=== PATIENT | female | born 1935 | race Caucasian/White ===

== ENCOUNTER 2020-08-28 05:53 | Inpatient (IN) ==
[2020-08-28 06:33] LABS: Basophils % 0.4 %; Eosinophils # 0.1 K/mcL (0.0-0.6); Eosinophils % 0.9 %; Hemoglobin 10.5 g/dL (11.5-15.4); Immature Granulocytes % 0.4 % (0-4); Immature Platelets 1.7 % (1.1-6.1); Lymphocytes # 0.8 K/mcL (0.6-4.6); Mean Corpuscular HGB Conc 31.8 g/dL (31.6-35.5); Mean Corpuscular Hemoglobin 26.9 pg (28.0-33.3); Mean Corpuscular Volume 84.4 fL (83.0-100.0); Mean Platelet Volume 9.8 fL (9.4-12.4); Monocytes # 0.5 K/mcL (0.0-1.3); Monocytes % 4.4 %; Neutrophils # 9.1 K/mcL (1.6-8.9); Platelet Count 285 K/mcL (140-400); Red Blood Count 3.91 M/mcL (3.82-4.97); Red Cell Distribution Width 14.9 % (11.5-14.5); Segmented Neutrophils % 85.9 %; White Blood Count 10.6 K/mcL (4.3-11.1)
[2020-08-28 06:51] LABS: BUN/Creatinine Ratio 17 (6-26); Blood Urea Nitrogen 31 mg/dL (8-23); Calcium 9.4 mg/dL (8.6-10.3); Carbon Dioxide 24 mEq/L (23-29); Chloride 101 mEq/L (98-107); Glucose 333 mg/dL (70-105); Osmolality,Calculated 298 (280-300); Potassium 4.8 mEq/L (3.5-5.1); Sodium 134 mEq/L (136-145); eGFR For African Americans 31 (> 60); eGFR For Non-African Americans 26 (> 60)
[2020-08-28 06:52] LABS: Troponin I < 0.03 ng/mL (< 0.04)
[2020-08-28] MEDS ORDERED: Furosemide 20 MG/2 ML VIAL IVP ONE (07:35)
[2020-08-28] MEDS ORDERED: Naloxone 0.4 MG/ML INJ IVP PRN (08:57)
[2020-08-28] MEDS ORDERED: Ondansetron 4 MG/2 ML VIAL IVP PRN (08:57)
[2020-08-28] MEDS ORDERED: Melatonin 3 MG TABLET PO PRN (08:57)
[2020-08-28] MEDS ORDERED: MOM Conc 10 ML UD.LIQ PO PRN (08:57)
[2020-08-28] MEDS ORDERED: Mag Hydrox/Al Hydrox/Simeth 30 ML UDC PO PRN (08:57)
[2020-08-28] MEDS ORDERED: Acetaminophen 325 MG TABLET PO PRN (08:57)
[2020-08-28] MEDS ORDERED: Aspirin Enteric Coated 81 MG Tablet PO SCH (12:30)
[2020-08-28] MEDS ORDERED: Perflutren Lipid Microsphere 1.3 ML in 0.9 % Sodium Chloride 8.7 ML IVP PRN (14:59)
[2020-08-28] MEDS: Valsartan 160 MG TABLET PO SCH (15:08)
[2020-08-28] MEDS ORDERED: D5% in Water 1,000 ML IVC PRN (18:50)
[2020-08-28] MEDS ORDERED: *HR* Dextrose 50 % in Water (Vial) 50 ML VIAL IVP PRN (18:50)
[2020-08-28] MEDS ORDERED: Dextrose Gel 15 GM/37.5 ML TUBE PO PRN ×2 (18:50)
[2020-08-28] MEDS: Insulin LISPRO 300 UNITS/3 ML VIAL SUBQ SCH (21:55)
[2020-08-29 07:13] LABS: Hematocrit 31.2 % (35.3-44.9); Hemoglobin 9.7 g/dL (11.5-15.4); Mean Corpuscular HGB Conc 31.1 g/dL (31.6-35.5); Mean Corpuscular Hemoglobin 26.1 pg (28.0-33.3); Mean Corpuscular Volume 83.9 fL (83.0-100.0); Mean Platelet Volume 9.7 fL (9.4-12.4); Platelet Count 248 K/mcL (140-400); Red Blood Count 3.72 M/mcL (3.82-4.97); Red Cell Distribution Width 14.6 % (11.5-14.5); White Blood Count 7.5 K/mcL (4.3-11.1)
[2020-08-29 07:33] LABS: BUN/Creatinine Ratio 19 (6-26); Blood Urea Nitrogen 32 mg/dL (8-23); Calcium 9.4 mg/dL (8.6-10.3); Carbon Dioxide 27 mEq/L (23-29); Chloride 102 mEq/L (98-107); Chol/HDL Ratio 5.1 (0-4.9); Cholesterol 123 mg/dL (< 200); Glucose 183 mg/dL (70-105); HDL Cholesterol 24 mg/dL (40-59); Osmolality,Calculated 296 (280-300); Potassium 4.2 mEq/L (3.5-5.1); Sodium 137 mEq/L (136-145); Triglycerides 435 mg/dL (< 150); eGFR For African Americans 35 (> 60); eGFR For Non-African Americans 29 (> 60)
[2020-08-29 08:18] LABS: Estimated Average Glucose 209 mg/dl; Hemoglobin A1C 8.9 %
[2020-08-29] MEDS ORDERED: Furosemide 20 MG/2 ML VIAL IVP SCH (09:00)
[2020-08-29] MEDS ORDERED: Famotidine 20 MG TABLET PO SCH (09:00)
[2020-08-29] MEDS ORDERED: VALSARTAN 320 MG PO SCH (09:00)
[2020-08-29] MEDS: Aspirin Enteric Coated 81 MG Tablet PO SCH (09:03)
[2020-08-29] MEDS: Valsartan 160 MG TABLET PO SCH (09:04)
[2020-08-29] MEDS: Fenofibrate 54 MG TABLET PO SCH (09:04)
[2020-08-29] MEDS: Insulin LISPRO 300 UNITS/3 ML VIAL SUBQ SCH ×4 (09:07→19:52)
[2020-08-30 02:36] LABS: Basophils # 0.1 K/mcL (0.0-0.2); Basophils % 0.8 %; Eosinophils # 0.2 K/mcL (0.0-0.6); Eosinophils % 3.6 %; Hematocrit 29.7 % (35.3-44.9); Hemoglobin 9.3 g/dL (11.5-15.4); Immature Granulocytes % 0.3 % (0-4); Lymphocytes # 1.2 K/mcL (0.6-4.6); Lymphocytes % 17.9 %; Mean Corpuscular HGB Conc 31.3 g/dL (31.6-35.5); Mean Corpuscular Hemoglobin 26.3 pg (28.0-33.3); Mean Corpuscular Volume 83.9 fL (83.0-100.0); Mean Platelet Volume 9.6 fL (9.4-12.4); Monocytes # 0.6 K/mcL (0.0-1.3); Monocytes % 8.9 %; Neutrophils # 4.4 K/mcL (1.6-8.9); Platelet Count 235 K/mcL (140-400); Red Blood Count 3.54 M/mcL (3.82-4.97); Red Cell Distribution Width 14.4 % (11.5-14.5); Segmented Neutrophils % 68.5 %; White Blood Count 6.4 K/mcL (4.3-11.1)
[2020-08-30 02:55] LABS: Albumin 3.9 g/dL (3.5-5.7); Albumin/Globulin Ratio 1.8 (1.1-2.2); Bilirubin,Indirect 0.3 mg/dL (0.0-1.0); Bilirubin,Total 0.3 mg/dL (0.3-1.0); Calcium 9.2 mg/dL (8.6-10.3); Globulin 2.2 g/dL (2.4-3.5); Magnesium 2.1 mg/dL (1.6-2.6); Potassium 4.1 mEq/L (3.5-5.1); Total Protein 6.1 g/dL (6.4-8.9)
[2020-08-30 03:06] LABS: Thyroid Stimulating Hormone 2.091 mcIU/mL (0.340-5.600)
[2020-08-30 03:16] LABS: Folate 12.9 ng/mL (3.0-16.0)
[2020-08-30] MEDS: *HR* Heparin 5,000 UNIT/ML VIAL SQ SCH ×2 (04:36→17:00)
[2020-08-30] MEDS: Fenofibrate 54 MG TABLET PO SCH (07:56)
[2020-08-30] MEDS: Valsartan 160 MG TABLET PO SCH (07:57)
[2020-08-30] MEDS: Famotidine 20 MG TABLET PO SCH (07:57)
[2020-08-30] MEDS: Aspirin Enteric Coated 81 MG Tablet PO SCH (07:57)
[2020-08-30] MEDS: Insulin LISPRO 300 UNITS/3 ML VIAL SUBQ SCH ×3 (07:58→17:01)
[2020-08-30] MEDS ORDERED: Furosemide 20 MG/2 ML VIAL IVP SCH (09:00)
[2020-08-30] MEDS: amLODIPine 5 MG TABLET PO SCH (15:37)
[2020-08-30] MEDS ORDERED: Insulin DETEMIR 100 UNIT/ML X5UNITS SUBQ SCH (21:00)
[2020-08-31 03:31] LABS: Basophils % 0.5 %; Eosinophils # 0.2 K/mcL (0.0-0.6); Eosinophils % 3.2 %; Hematocrit 30.3 % (35.3-44.9); Immature Granulocytes % 0.5 % (0-4); Lymphocytes # 1.1 K/mcL (0.6-4.6); Lymphocytes % 18.1 %; Mean Corpuscular Hemoglobin 27.5 pg (28.0-33.3); Mean Corpuscular Volume 83.2 fL (83.0-100.0); Mean Platelet Volume 9.9 fL (9.4-12.4); Monocytes # 0.5 K/mcL (0.0-1.3); Monocytes % 8.5 %; Neutrophils # 4.3 K/mcL (1.6-8.9); Platelet Count 262 K/mcL (140-400); Red Blood Count 3.64 M/mcL (3.82-4.97); Red Cell Distribution Width 14.5 % (11.5-14.5); Segmented Neutrophils % 69.2 %; White Blood Count 6.3 K/mcL (4.3-11.1)
[2020-08-31 03:49] LABS: Magnesium 2.1 mg/dL (1.6-2.6); Potassium 4.4 mEq/L (3.5-5.1)
[2020-08-31] MEDS: *HR* Heparin 5,000 UNIT/ML VIAL SQ SCH (06:12)
[2020-08-31 07:44] VITALS: BP 147/87
[2020-08-31] MEDS: Fenofibrate 54 MG TABLET PO SCH (07:56)
[2020-08-31] MEDS: Insulin LISPRO 300 UNITS/3 ML VIAL SUBQ SCH (07:56)
[2020-08-31] MEDS: Famotidine 20 MG TABLET PO SCH (07:57)
[2020-08-31] MEDS: Aspirin Enteric Coated 81 MG Tablet PO SCH (07:57)
[2020-08-31] MEDS: amLODIPine 5 MG TABLET PO SCH (07:57)
== END 2020-08-31 10:43 | disposition home or self-care (01) | DRG 291 ==
LOC: EMEROOARM 05:53 → 3ANU 05:53 → SUATTDRO 09:11 → 3ANU 10:44
PROVIDERS: ADMIT Internal Medicine; ATTEND Pharmacist

== ENCOUNTER 2020-11-17 08:17 | Inpatient (IN) ==
[2020-11-17] MEDS ORDERED: Ipratropium/Albuterol Neb 3 ML IH ONE (08:43)
[2020-11-17 09:23] LABS: Basophils # 0.1 K/mcL (0.0-0.2); Basophils % 0.5 %; Eosinophils # 0.2 K/mcL (0.0-0.6); Eosinophils % 1.9 %; Hematocrit 33.8 % (35.3-44.9); Hemoglobin 10.4 g/dL (11.5-15.4); Immature Granulocytes % 0.5 % (0-4); Lymphocytes # 0.8 K/mcL (0.6-4.6); Lymphocytes % 7.9 %; Mean Corpuscular HGB Conc 30.8 g/dL (31.6-35.5); Mean Corpuscular Hemoglobin 25.8 pg (28.0-33.3); Mean Corpuscular Volume 83.9 fL (83.0-100.0); Mean Platelet Volume 9.1 fL (9.4-12.4); Monocytes # 0.6 K/mcL (0.0-1.3); Monocytes % 6.1 %; Platelet Count 308 K/mcL (140-400); Red Blood Count 4.03 M/mcL (3.82-4.97); Red Cell Distribution Width 14.9 % (11.5-14.5); Segmented Neutrophils % 83.1 %; White Blood Count 9.7 K/mcL (4.3-11.1)
[2020-11-17 09:44] LABS: BUN/Creatinine Ratio 17 (6-26); Blood Urea Nitrogen 45 mg/dL (8-23); Carbon Dioxide 26 mEq/L (23-29); Chloride 100 mEq/L (98-107); Glucose 127 mg/dL (70-105); Osmolality,Calculated 293 (280-300); Potassium 4.9 mEq/L (3.5-5.1); Sodium 135 mEq/L (136-145); Troponin I < 0.03 ng/mL (< 0.04); eGFR For African Americans 21 (> 60); eGFR For Non-African Americans 17 (> 60)
[2020-11-17] MEDS ORDERED: Furosemide 40 MG/4 ML VIAL IVP ONE (12:11)
[2020-11-17] MEDS ORDERED: methylPREDNISolone 125 MG/2 ML VIAL IVP ONE (12:19)
[2020-11-17] MEDS ORDERED: Acetaminophen 325 MG TABLET PO PRN (13:10)
[2020-11-17] MEDS ORDERED: Mag Hydrox/Al Hydrox/Simeth 30 ML UDC PO PRN (13:10)
[2020-11-17] MEDS ORDERED: Naloxone 0.4 MG/ML INJ IVP PRN (13:10)
[2020-11-17] MEDS ORDERED: Ondansetron ODT 4 MG TAB.RAPDIS SL PRN (13:10)
[2020-11-17] MEDS ORDERED: Albuterol 2.5 MG/3 ML NEBULIZER IH PRN (13:14)
[2020-11-17] MEDS ORDERED: *HR* Dextrose 50 % in Water (Vial) 50 ML VIAL IVP PRN (15:59)
[2020-11-17] MEDS ORDERED: D5% in Water 1,000 ML IVC PRN (15:59)
[2020-11-17] MEDS ORDERED: Dextrose Gel 15 GM/37.5 ML TUBE PO PRN ×2 (15:59)
[2020-11-17] MEDS: Ipratropium/Albuterol Neb 3 ML IH SCH ×3 (16:02→23:07)
[2020-11-17] MEDS ORDERED: Azithromycin 250 MG TABLET PO ONE (16:22)
[2020-11-17 16:31] LABS: Adenovirus Not Detected (Not Detect); Bordetella Pertussis Not Detected (Not Detect); Chlamydophila pneumoniae Not Detected (Not Detect); Coronavirus 229E Not Detected (Not Detect); Coronavirus HKU1 Not Detected (Not Detect); Coronavirus NL63 Not Detected (Not Detect); Coronavirus OC43 Not Detected (Not Detect); Human Metapneumovirus Not Detected (Not Detect); Human Rhinovirus/Enterovirus Not Detected (Not Detect); Influenza A Subtype 2009 H1 Not Detected (Not Detect); Influenza B Not Detected (Not Detect); Mycoplasma pneumoniae Not Detected (Not Detect); Parainfluenza Virus 1 Not Detected (Not Detect); Parainfluenza Virus 2 Not Detected (Not Detect); Parainfluenza Virus 3 Not Detected (Not Detect); Parainfluenza Virus 4 Not Detected (Not Detect); Respiratory Syncytial Virus Not Detected (Not Detect); SARS-CoV-2 Not Detected (Not Detect)
[2020-11-17] MEDS: Insulin LISPRO 300 UNITS/3 ML VIAL SUBQ SCH ×2 (17:02→20:43)
[2020-11-17] MEDS: *HR* Heparin 5,000 UNIT/ML VIAL SQ SCH (17:20)
[2020-11-17] MEDS: Budesonide/Formoterol 160/4.5 1 PUFF INH IH SCH (19:43)
[2020-11-18] MEDS: Ipratropium/Albuterol Neb 3 ML IH SCH ×6 (03:05→23:50)
[2020-11-18] MEDS: *HR* Heparin 5,000 UNIT/ML VIAL SQ SCH ×2 (03:59→17:29)
[2020-11-18 06:27] LABS: Hematocrit 32.4 % (35.3-44.9); Hemoglobin 10.1 g/dL (11.5-15.4); Mean Corpuscular HGB Conc 31.2 g/dL (31.6-35.5); Mean Corpuscular Hemoglobin 25.7 pg (28.0-33.3); Mean Corpuscular Volume 82.4 fL (83.0-100.0); Mean Platelet Volume 9.5 fL (9.4-12.4); Platelet Count 304 K/mcL (140-400); Red Blood Count 3.93 M/mcL (3.82-4.97); Red Cell Distribution Width 14.6 % (11.5-14.5); White Blood Count 6.4 K/mcL (4.3-11.1)
[2020-11-18] MEDS: Budesonide/Formoterol 160/4.5 1 PUFF INH IH SCH ×2 (07:29→19:38)
[2020-11-18] MEDS ORDERED: Famotidine 20 MG TABLET PO SCH (09:00)
[2020-11-18] MEDS: Valsartan 160 MG TABLET PO SCH (09:07)
[2020-11-18] MEDS: Furosemide 40 MG/4 ML VIAL IVP SCH (09:08)
[2020-11-18] MEDS: predniSONE 20 MG TABLET PO SCH (09:08)
[2020-11-18] MEDS: Aspirin Enteric Coated 81 MG Tablet PO SCH (09:08)
[2020-11-18] MEDS: Azithromycin 250 MG TABLET PO SCH (09:08)
[2020-11-18] MEDS: amLODIPine 5 MG TABLET PO SCH (09:08)
[2020-11-18] MEDS: Insulin LISPRO 300 UNITS/3 ML VIAL SUBQ SCH ×4 (09:09→20:16)
[2020-11-19] MEDS: Ipratropium/Albuterol Neb 3 ML IH SCH ×6 (04:16→23:38)
[2020-11-19] MEDS: *HR* Heparin 5,000 UNIT/ML VIAL SQ SCH ×2 (04:58→17:31)
[2020-11-19] MEDS: Budesonide/Formoterol 160/4.5 1 PUFF INH IH SCH ×2 (07:35→19:51)
[2020-11-19] MEDS: Furosemide 40 MG/4 ML VIAL IVP SCH (07:54)
[2020-11-19] MEDS: Insulin LISPRO 300 UNITS/3 ML VIAL SUBQ SCH ×4 (07:54→21:30)
[2020-11-19] MEDS: Famotidine 20 MG TABLET PO SCH (08:01)
[2020-11-19] MEDS: Azithromycin 250 MG TABLET PO SCH (08:01)
[2020-11-19] MEDS: Valsartan 160 MG TABLET PO SCH (08:02)
[2020-11-19] MEDS: amLODIPine 5 MG TABLET PO SCH (08:02)
[2020-11-19] MEDS: Aspirin Enteric Coated 81 MG Tablet PO SCH (08:02)
[2020-11-19] MEDS: predniSONE 20 MG TABLET PO SCH (08:03)
[2020-11-19 09:45] LABS: Calcium 9.3 mg/dL (8.6-10.3); Magnesium 2.7 mg/dL (1.6-2.6); Potassium 4.8 mEq/L (3.5-5.1)
[2020-11-19] MEDS: Insulin DETEMIR 100 UNIT/ML X5UNITS SUBQ SCH (15:49)
[2020-11-20 02:07] LABS: Basophils % 0.1 %; Hematocrit 30.6 % (35.3-44.9); Hemoglobin 9.4 g/dL (11.5-15.4); Immature Granulocytes % 0.5 % (0-4); Lymphocytes # 0.6 K/mcL (0.6-4.6); Lymphocytes % 6.9 %; Mean Corpuscular HGB Conc 30.7 g/dL (31.6-35.5); Mean Corpuscular Hemoglobin 25.8 pg (28.0-33.3); Mean Corpuscular Volume 83.8 fL (83.0-100.0); Mean Platelet Volume 9.6 fL (9.4-12.4); Monocytes # 0.5 K/mcL (0.0-1.3); Monocytes % 5.4 %; Neutrophils # 8.1 K/mcL (1.6-8.9); Platelet Count 293 K/mcL (140-400); Red Blood Count 3.65 M/mcL (3.82-4.97); Red Cell Distribution Width 14.6 % (11.5-14.5); Segmented Neutrophils % 87.1 %; White Blood Count 9.3 K/mcL (4.3-11.1)
[2020-11-20 02:25] LABS: Albumin 3.8 g/dL (3.5-5.7); Albumin/Globulin Ratio 1.6 (1.1-2.2); Bilirubin,Total 0.3 mg/dL (0.3-1.0); Calcium 8.5 mg/dL (8.6-10.3); Globulin 2.4 g/dL (2.4-3.5); Phosphorous 5.1 mg/dL (2.7-4.5); Potassium 5.1 mEq/L (3.5-5.1); Total Protein 6.2 g/dL (6.4-8.9)
[2020-11-20] MEDS: Ipratropium/Albuterol Neb 3 ML IH SCH ×6 (03:42→23:52)
[2020-11-20] MEDS: *HR* Heparin 5,000 UNIT/ML VIAL SQ SCH ×2 (05:56→16:59)
[2020-11-20] MEDS ORDERED: Albumin 25% 25gram/100mL 25 GM/100 ML IV.SOLN IVPB ONE (06:00)
[2020-11-20] MEDS: Budesonide/Formoterol 160/4.5 1 PUFF INH IH SCH ×2 (07:29→20:12)
[2020-11-20] MEDS: Insulin LISPRO 300 UNITS/3 ML VIAL SUBQ SCH ×4 (07:40→21:04)
[2020-11-20] MEDS: Insulin DETEMIR 100 UNIT/ML X5UNITS SUBQ SCH (07:40)
[2020-11-20] MEDS: predniSONE 20 MG TABLET PO SCH (07:41)
[2020-11-20] MEDS: Furosemide 40 MG/4 ML VIAL IVP SCH (07:41)
[2020-11-20] MEDS: Aspirin Enteric Coated 81 MG Tablet PO SCH (07:41)
[2020-11-20] MEDS: Famotidine 20 MG TABLET PO SCH (07:41)
[2020-11-20] MEDS: amLODIPine 5 MG TABLET PO SCH (07:41)
[2020-11-20] MEDS: Valsartan 160 MG TABLET PO SCH (07:42)
[2020-11-20] MEDS: Azithromycin 250 MG TABLET PO SCH (07:42)
[2020-11-21] MEDS: Ipratropium/Albuterol Neb 3 ML IH SCH ×6 (03:27→23:44)
[2020-11-21 05:03] LABS: Eosinophils % 0.2 %; Hemoglobin 10.1 g/dL (11.5-15.4); Immature Granulocytes % 0.3 % (0-4); Lymphocytes # 0.7 K/mcL (0.6-4.6); Lymphocytes % 8.3 %; Mean Corpuscular HGB Conc 31.6 g/dL (31.6-35.5); Mean Corpuscular Hemoglobin 26.7 pg (28.0-33.3); Mean Corpuscular Volume 84.7 fL (83.0-100.0); Mean Platelet Volume 9.5 fL (9.4-12.4); Monocytes # 0.7 K/mcL (0.0-1.3); Monocytes % 8.3 %; Neutrophils # 7.3 K/mcL (1.6-8.9); Platelet Count 277 K/mcL (140-400); Red Blood Count 3.78 M/mcL (3.82-4.97); Red Cell Distribution Width 14.6 % (11.5-14.5); Segmented Neutrophils % 82.9 %; White Blood Count 8.8 K/mcL (4.3-11.1)
[2020-11-21 05:26] LABS: Calcium 9.4 mg/dL (8.6-10.3); Potassium 4.9 mEq/L (3.5-5.1)
[2020-11-21] MEDS: *HR* Heparin 5,000 UNIT/ML VIAL SQ SCH ×2 (05:28→17:41)
[2020-11-21] MEDS: Insulin LISPRO 300 UNITS/3 ML VIAL SUBQ SCH ×4 (07:09→20:50)
[2020-11-21] MEDS: Azithromycin 250 MG TABLET PO SCH (07:33)
[2020-11-21] MEDS: Insulin DETEMIR 100 UNIT/ML X5UNITS SUBQ SCH (07:33)
[2020-11-21] MEDS: Aspirin Enteric Coated 81 MG Tablet PO SCH (07:33)
[2020-11-21] MEDS: Furosemide 40 MG/4 ML VIAL IVP SCH (07:33)
[2020-11-21] MEDS: Valsartan 160 MG TABLET PO SCH (07:34)
[2020-11-21] MEDS: predniSONE 20 MG TABLET PO SCH (07:34)
[2020-11-21] MEDS: amLODIPine 5 MG TABLET PO SCH (07:34)
[2020-11-21] MEDS: Famotidine 20 MG TABLET PO SCH (07:34)
[2020-11-21] MEDS: Budesonide/Formoterol 160/4.5 1 PUFF INH IH SCH ×2 (07:43→19:40)
[2020-11-22] MEDS: Ipratropium/Albuterol Neb 3 ML IH SCH ×5 (03:38→19:36)
[2020-11-22] MEDS: *HR* Heparin 5,000 UNIT/ML VIAL SQ SCH ×2 (05:26→16:59)
[2020-11-22] MEDS: Insulin LISPRO 300 UNITS/3 ML VIAL SUBQ SCH ×4 (07:08→21:23)
[2020-11-22] MEDS: Budesonide/Formoterol 160/4.5 1 PUFF INH IH SCH ×2 (07:35→19:36)
[2020-11-22] MEDS: Insulin DETEMIR 100 UNIT/ML X5UNITS SUBQ SCH (08:11)
[2020-11-22] MEDS: predniSONE 20 MG TABLET PO SCH (08:11)
[2020-11-22] MEDS: Valsartan 160 MG TABLET PO SCH (08:11)
[2020-11-22] MEDS: Aspirin Enteric Coated 81 MG Tablet PO SCH (08:11)
[2020-11-22] MEDS: amLODIPine 5 MG TABLET PO SCH (08:12)
[2020-11-22] MEDS: Famotidine 20 MG TABLET PO SCH (08:12)
[2020-11-22] MEDS ORDERED: Furosemide 40 MG TABLET PO SCH (09:00)
[2020-11-22 12:32] LABS: Hematocrit 34.2 % (35.3-44.9); Hemoglobin 10.8 g/dL (11.5-15.4); Mean Corpuscular HGB Conc 31.6 g/dL (31.6-35.5); Mean Corpuscular Hemoglobin 26.5 pg (28.0-33.3); Mean Platelet Volume 9.3 fL (9.4-12.4); Platelet Count 300 K/mcL (140-400); Red Blood Count 4.07 M/mcL (3.82-4.97); Red Cell Distribution Width 14.6 % (11.5-14.5); White Blood Count 10.9 K/mcL (4.3-11.1)
[2020-11-22 13:01] LABS: Calcium 9.4 mg/dL (8.6-10.3); Potassium 5.2 mEq/L (3.5-5.1)
[2020-11-22] MEDS: Melatonin 3 MG TABLET PO PRN (21:22)
[2020-11-23] MEDS: Ipratropium/Albuterol Neb 3 ML IH SCH ×6 (00:23→21:19)
[2020-11-23 01:27] LABS: Hematocrit 31.8 % (35.3-44.9); Hemoglobin 10.1 g/dL (11.5-15.4); Mean Corpuscular HGB Conc 31.8 g/dL (31.6-35.5); Mean Corpuscular Hemoglobin 26.6 pg (28.0-33.3); Mean Corpuscular Volume 83.9 fL (83.0-100.0); Mean Platelet Volume 9.3 fL (9.4-12.4); Platelet Count 254 K/mcL (140-400); Red Blood Count 3.79 M/mcL (3.82-4.97); Red Cell Distribution Width 14.5 % (11.5-14.5); White Blood Count 8.3 K/mcL (4.3-11.1)
[2020-11-23 01:52] LABS: Calcium 9.2 mg/dL (8.6-10.3); Potassium 4.9 mEq/L (3.5-5.1)
[2020-11-23] MEDS: *HR* Heparin 5,000 UNIT/ML VIAL SQ SCH ×2 (05:54→16:54)
[2020-11-23] MEDS: Budesonide/Formoterol 160/4.5 1 PUFF INH IH SCH ×2 (07:12→21:19)
[2020-11-23] MEDS: Insulin LISPRO 300 UNITS/3 ML VIAL SUBQ SCH ×4 (07:18→21:42)
[2020-11-23] MEDS: amLODIPine 5 MG TABLET PO SCH (07:44)
[2020-11-23] MEDS: Aspirin Enteric Coated 81 MG Tablet PO SCH (07:44)
[2020-11-23] MEDS: Insulin DETEMIR 100 UNIT/ML X5UNITS SUBQ SCH (07:44)
[2020-11-23] MEDS: predniSONE 20 MG TABLET PO SCH (07:45)
[2020-11-23] MEDS: Famotidine 20 MG TABLET PO SCH (07:45)
[2020-11-23] MEDS: Melatonin 3 MG TABLET PO PRN (21:45)
[2020-11-24] MEDS: Ipratropium/Albuterol Neb 3 ML IH SCH ×4 (00:25→11:00)
[2020-11-24 04:54] LABS: Basophils % 0.1 %; Eosinophils # 0.2 K/mcL (0.0-0.6); Hematocrit 30.4 % (35.3-44.9); Hemoglobin 9.9 g/dL (11.5-15.4); Immature Granulocytes % 0.3 % (0-4); Lymphocytes # 0.9 K/mcL (0.6-4.6); Lymphocytes % 9.7 %; Mean Corpuscular HGB Conc 32.6 g/dL (31.6-35.5); Mean Corpuscular Hemoglobin 26.5 pg (28.0-33.3); Mean Corpuscular Volume 81.5 fL (83.0-100.0); Mean Platelet Volume 9.2 fL (9.4-12.4); Monocytes # 0.6 K/mcL (0.0-1.3); Neutrophils # 7.2 K/mcL (1.6-8.9); Platelet Count 255 K/mcL (140-400); Red Blood Count 3.73 M/mcL (3.82-4.97); Red Cell Distribution Width 14.3 % (11.5-14.5); Segmented Neutrophils % 80.9 %
[2020-11-24 05:15] LABS: Calcium 9.1 mg/dL (8.6-10.3); Potassium 4.9 mEq/L (3.5-5.1)
[2020-11-24] MEDS: *HR* Heparin 5,000 UNIT/ML VIAL SQ SCH (05:57)
[2020-11-24] MEDS: Budesonide/Formoterol 160/4.5 1 PUFF INH IH SCH (07:42)
[2020-11-24] MEDS: Famotidine 20 MG TABLET PO SCH (08:11)
[2020-11-24] MEDS: Aspirin Enteric Coated 81 MG Tablet PO SCH (08:11)
[2020-11-24] MEDS: predniSONE 20 MG TABLET PO SCH (08:11)
[2020-11-24] MEDS: Insulin LISPRO 300 UNITS/3 ML VIAL SUBQ SCH ×2 (08:12→12:26)
[2020-11-24] MEDS: amLODIPine 5 MG TABLET PO SCH (08:12)
[2020-11-24] MEDS: Insulin DETEMIR 100 UNIT/ML X5UNITS SUBQ SCH (08:12)
[2020-11-24 11:43] VITALS: TEMP 98.3; O2SAT 97
[2020-11-24 14:40] VITALS: BP 133/70; PULSE 63
== END 2020-11-24 15:30 | disposition home or self-care (01) | DRG 291 ==
LOC: EMEROOARM 08:17 → 3BNU 08:17 → SUATTDRO 12:19 → 3BNU 13:27 → SUATTDRO 14:38
PROVIDERS: ADMIT Family Medicine; ATTEND Nurse Practitioner

== ENCOUNTER 2021-09-06 09:44 | Inpatient (IN) ==
[2021-09-06] MEDS ORDERED: 0.9 % Sodium Chloride 1,000 ML IV ONE (10:19)
[2021-09-06] MEDS ORDERED: Isovue-370 500 ML BOTTLE IVP ONE (10:36)
[2021-09-06] MEDS ORDERED: Morphine Sulfate 2 MG/ML SYRINGE IVP ONE (10:36)
[2021-09-06] MEDS ORDERED: Ondansetron 4 MG/2 ML VIAL IVP PRN ×2 (10:36→12:56)
[2021-09-06 11:00] LABS: Basophils # 0.1 K/mcL (0.0-0.2); Basophils % 0.4 %; Eosinophils % 0.2 %; Hematocrit 31.9 % (35.3-44.9); Hemoglobin 10.4 g/dL (11.5-15.4); Immature Granulocytes % 0.4 % (0-4); Lymphocytes # 0.8 K/mcL (0.6-4.6); Lymphocytes % 6.5 %; Mean Corpuscular HGB Conc 32.6 g/dL (31.6-35.5); Mean Corpuscular Hemoglobin 26.9 pg (28.0-33.3); Mean Corpuscular Volume 82.4 fL (83.0-100.0); Mean Platelet Volume 9.3 fL (9.4-12.4); Monocytes # 0.7 K/mcL (0.0-1.3); Monocytes % 5.5 %; Neutrophils # 10.9 K/mcL (1.6-8.9); Platelet Count 301 K/mcL (140-400); Red Blood Count 3.87 M/mcL (3.82-4.97); Red Cell Distribution Width 15.7 % (11.5-14.5); White Blood Count 12.5 K/mcL (4.3-11.1)
[2021-09-06 11:07] LABS: INR 1.2; Prothrombin Time 13.9 Seconds (9.4-12.1)
[2021-09-06 11:10] LABS: Activated Partial Thrombo Time 32.9 Seconds (26.0-36.0)
[2021-09-06] MEDS ORDERED: *HR* Metoprolol 5 MG/5 ML VIAL IVP ONE ×2 (11:29→12:30)
[2021-09-06 11:43] LABS: Alanine Aminotransferase 16 Units/L (7-52); Albumin 4.1 g/dL (3.5-5.7); Albumin/Globulin Ratio 1.5 (1.1-2.2); Alkaline Phosphatase 42 Units/L (34-104); Aspartate Amino Transferase 25 Units/L (13-39); BUN/Creatinine Ratio 18 (6-26); Bilirubin,Indirect 0.5 mg/dL (0.0-1.0); Bilirubin,Total 0.5 mg/dL (0.3-1.0); Blood Urea Nitrogen 53 mg/dL (8-23); Calcium 9.3 mg/dL (8.6-10.3); Carbon Dioxide 24 mEq/L (23-29); Chloride 95 mEq/L (98-107); Globulin 2.8 g/dL (2.4-3.5); Glucose 132 mg/dL (70-105); Lipase 45 Units/L (11-82); Osmolality,Calculated 286 (280-300); Potassium 5.8 mEq/L (3.5-5.1); Sodium 130 mEq/L (136-145); Total Protein 6.9 g/dL (6.4-8.9); Troponin I < 0.03 ng/mL (< 0.04); eGFR For African Americans 19 (> 60); eGFR For Non-African Americans 15 (> 60)
[2021-09-06] MEDS ORDERED: Albuterol 2.5 MG/3 ML NEBULIZER IH ONE (12:04)
[2021-09-06] MEDS ORDERED: Furosemide 40 MG/4 ML VIAL IVP ONE (12:06)
[2021-09-06] MEDS: Calcium Gluconate 1gm/50mL 1 GM/50 ML BAG IVPB SCH ×2 (12:32→15:01)
[2021-09-06] MEDS ORDERED: Acetaminophen 325 MG TABLET PO PRN (12:56)
[2021-09-06] MEDS ORDERED: Naloxone 0.4 MG/ML INJ IVP PRN (12:56)
[2021-09-06] MEDS ORDERED: D5% in Water 1,000 ML IVC PRN (13:03)
[2021-09-06] MEDS ORDERED: Dextrose 4 GM Chewable Tablets PO PRN ×2 (13:03)
[2021-09-06] MEDS ORDERED: *HR* Dextrose 50 % in Water (Syg) 50 ML SYRINGE IVP PRN (13:03)
[2021-09-06] MEDS ORDERED: Levalbuterol Neb 1.25 MG/3 ML IH PRN (13:03)
[2021-09-06] MEDS: SODIUM ZIRCONIUM CYCLOSILICATE 5 GM POWD.PACK PO SCH (13:10)
[2021-09-06] MEDS ORDERED: *HR* Heparin 5,000 UNIT/ML VIAL IVP ONE (13:39)
[2021-09-06] MEDS ORDERED: *HR* Heparin 5,000 UNIT/ML VIAL IVP PRN (13:39)
[2021-09-06] MEDS ORDERED: Perflutren Lipid Microsphere 1.3 ML in 0.9 % Sodium Chloride 8.7 ML IVP PRN (13:40)
[2021-09-06] MEDS: DilTIAZem 50 MG/50 ML IV.SOLN IVC SCH ×3 (15:01→22:05)
[2021-09-06] MEDS: Insulin LISPRO 300 UNITS/3 ML VIAL SUBQ SCH (15:26)
[2021-09-06] MEDS: Heparin 25,000UNIT/250ML 1/2NS 25,000 UNIT/250 ML IV.SOLN IVC SCH (16:25)
[2021-09-06] MEDS: Bumetanide 1 MG/4 ML VIAL IVP SCH (16:25)
[2021-09-06 17:10] LABS: Bilirubin,Urine Negative (Negative); Blood,Urine Negative (Negative); Clarity,Urine Clear (Clear); Color,Urine Light-Yellow (Yellow); Glucose,Urine (UA) Normal (Normal); Granular Casts,Urine Few per lpf (None Seen); Hyaline Casts,Urine Few per lpf (None Seen); Ketones,Urine Negative (Negative); Leukocyte Esterase,Urine Negative (Negative); Mucus,Urine Few per lpf (None-Few); Nitrite,Urine Negative (Negative); Protein,Urine 100 mg/dL (Neg-Trace); RBC,Urine 0-3 per hpf (0-3); Renal Epithelial Cells,Urine Few per hpf (None-Few); Specific Gravity,Urine 1.013 (1.010-1.025); Squamous Epithelial Cell,Urine Few per hpf (None-Few); Transitional Epi Cells,Urine Few per hpf (None-Few); Urobilinogen,Urine Normal (Normal); WBC,Urine 0-3 per hpf (0-3)
[2021-09-06 17:47] LABS: Hematocrit 30.3 % (35.3-44.9); Hemoglobin 9.8 g/dL (11.5-15.4); Mean Corpuscular HGB Conc 32.3 g/dL (31.6-35.5); Mean Corpuscular Hemoglobin 26.6 pg (28.0-33.3); Mean Corpuscular Volume 82.3 fL (83.0-100.0); Mean Platelet Volume 9.6 fL (9.4-12.4); Platelet Count 300 K/mcL (140-400); Red Blood Count 3.68 M/mcL (3.82-4.97); Red Cell Distribution Width 15.9 % (11.5-14.5); White Blood Count 10.2 K/mcL (4.3-11.1)
[2021-09-06 17:57] LABS: INR 1.4
[2021-09-06 18:05] LABS: Heparin anti-factor XA UFH 1.59 IU/mL (0.30-0.70)
[2021-09-07 06:03] LABS: Basophils # 0.1 K/mcL (0.0-0.2); Basophils % 0.5 %; Eosinophils % 0.3 %; Hematocrit 29.5 % (35.3-44.9); Hemoglobin 9.5 g/dL (11.5-15.4); Immature Granulocytes % 0.5 % (0-4); Lymphocytes # 0.9 K/mcL (0.6-4.6); Lymphocytes % 9.2 %; Mean Corpuscular HGB Conc 32.2 g/dL (31.6-35.5); Mean Corpuscular Hemoglobin 26.6 pg (28.0-33.3); Mean Corpuscular Volume 82.6 fL (83.0-100.0); Mean Platelet Volume 9.5 fL (9.4-12.4); Monocytes # 0.6 K/mcL (0.0-1.3); Monocytes % 5.9 %; Platelet Count 263 K/mcL (140-400); Red Blood Count 3.57 M/mcL (3.82-4.97); Red Cell Distribution Width 15.9 % (11.5-14.5); Segmented Neutrophils % 83.6 %; White Blood Count 9.6 K/mcL (4.3-11.1)
[2021-09-07] MEDS: DilTIAZem 50 MG/50 ML IV.SOLN IVC SCH ×4 (06:11→21:36)
[2021-09-07 06:20] LABS: Calcium 9.3 mg/dL (8.6-10.3); Magnesium 2.4 mg/dL (1.6-2.6); Phosphorous 5.4 mg/dL (2.7-4.5); Potassium 5.1 mEq/L (3.5-5.1)
[2021-09-07] MEDS: Insulin LISPRO 300 UNITS/3 ML VIAL SUBQ SCH ×3 (07:32→16:35)
[2021-09-07] MEDS: Aspirin Enteric Coated 81 MG Tablet PO SCH (08:29)
[2021-09-07] MEDS: Bumetanide 1 MG/4 ML VIAL IVP SCH (08:29)
[2021-09-07] MEDS: Cholecalciferol (D-3) 1,000 UNIT (25MCG) TABLET PO SCH (08:29)
[2021-09-07] MEDS: SODIUM ZIRCONIUM CYCLOSILICATE 5 GM POWD.PACK PO SCH (08:30)
[2021-09-07] MEDS: Budesonide/Formoterol 160/4.5 1 PUFF INH IH SCH ×2 (11:37→22:43)
[2021-09-07] MEDS: Simethicone 80 MG TAB.CHEW PO PRN ×2 (11:57→18:48)
[2021-09-07] MEDS: Albumin 25% 25gram/100mL 25 GM/100 ML IV.SOLN IVPB SCH (15:38)
[2021-09-07] MEDS: Furosemide 20 MG/2 ML VIAL IVP SCH (18:03)
[2021-09-07] MEDS: Heparin 25,000UNIT/250ML 1/2NS 25,000 UNIT/250 ML IV.SOLN IVC SCH (18:28)
[2021-09-07] MEDS ORDERED: *HR* Metoprolol 5 MG/5 ML VIAL IVP ONE (20:37)
[2021-09-08] MEDS ORDERED: Amiodarone Premix 150 MG/100 ML BAG IVPB ONE (00:36)
[2021-09-08] MEDS ORDERED: Amiodarone Premix 360 MG/200 ML BAG IVC ONE (00:36)
[2021-09-08] MEDS: Albumin 25% 25gram/100mL 25 GM/100 ML IV.SOLN IVPB SCH ×3 (01:17→16:52)
[2021-09-08] MEDS: Amiodarone Premix 360 MG/200 ML BAG IVC SCH ×2 (06:10→18:32)
[2021-09-08] MEDS: Budesonide/Formoterol 160/4.5 1 PUFF INH IH SCH ×2 (07:56→20:12)
[2021-09-08] MEDS: Aspirin Enteric Coated 81 MG Tablet PO SCH (08:34)
[2021-09-08] MEDS: Cholecalciferol (D-3) 1,000 UNIT (25MCG) TABLET PO SCH (08:34)
[2021-09-08] MEDS: SODIUM ZIRCONIUM CYCLOSILICATE 5 GM POWD.PACK PO SCH (08:34)
[2021-09-08] MEDS: Furosemide 20 MG/2 ML VIAL IVP SCH (08:34)
[2021-09-08] MEDS: Insulin LISPRO 300 UNITS/3 ML VIAL SUBQ SCH ×3 (08:37→16:29)
[2021-09-08 13:23] LABS: Basophils % 0.1 %; Hematocrit 26.1 % (35.3-44.9); Hemoglobin 8.4 g/dL (11.5-15.4); Immature Granulocytes % 1.3 % (0-4); Lymphocytes # 0.5 K/mcL (0.6-4.6); Lymphocytes % 2.5 %; Mean Corpuscular HGB Conc 32.2 g/dL (31.6-35.5); Mean Corpuscular Volume 83.9 fL (83.0-100.0); Mean Platelet Volume 9.5 fL (9.4-12.4); Monocytes # 0.5 K/mcL (0.0-1.3); Monocytes % 2.3 %; Neutrophils # 19.6 K/mcL (1.6-8.9); Platelet Count 243 K/mcL (140-400); Red Blood Count 3.11 M/mcL (3.82-4.97); Segmented Neutrophils % 93.8 %
[2021-09-08 13:24] LABS: White Blood Count 20.9 K/mcL (4.3-11.1)
[2021-09-08] MEDS: *HR* Heparin 5,000 UNIT/ML VIAL IVP PRN (14:17)
[2021-09-08 14:38] LABS: Calcium 8.4 mg/dL (8.6-10.3); Potassium 4.2 mEq/L (3.5-5.1)
[2021-09-08] MEDS: Simethicone 80 MG TAB.CHEW PO PRN (20:18)
[2021-09-08] MEDS: Heparin 25,000UNIT/250ML 1/2NS 25,000 UNIT/250 ML IV.SOLN IVC SCH (22:19)
[2021-09-09] MEDS: Albumin 25% 25gram/100mL 25 GM/100 ML IV.SOLN IVPB SCH ×3 (00:19→16:52)
[2021-09-09] MEDS: Amiodarone Premix 360 MG/200 ML BAG IVC SCH (06:11)
[2021-09-09 07:40] LABS: Basophils % 0.1 %; Eosinophils % 0.2 %; Hematocrit 26.8 % (35.3-44.9); Hemoglobin 8.5 g/dL (11.5-15.4); Lymphocytes # 0.5 K/mcL (0.6-4.6); Lymphocytes % 3.3 %; Mean Corpuscular HGB Conc 31.7 g/dL (31.6-35.5); Mean Corpuscular Hemoglobin 26.6 pg (28.0-33.3); Mean Corpuscular Volume 83.8 fL (83.0-100.0); Mean Platelet Volume 9.5 fL (9.4-12.4); Monocytes # 0.4 K/mcL (0.0-1.3); Monocytes % 2.8 %; Neutrophils # 14.6 K/mcL (1.6-8.9); Platelet Count 244 K/mcL (140-400); Red Cell Distribution Width 16.2 % (11.5-14.5); Segmented Neutrophils % 92.6 %; White Blood Count 15.7 K/mcL (4.3-11.1)
[2021-09-09] MEDS: Insulin LISPRO 300 UNITS/3 ML VIAL SUBQ SCH ×3 (08:07→16:52)
[2021-09-09 08:10] LABS: Calcium 8.8 mg/dL (8.6-10.3); Potassium 3.9 mEq/L (3.5-5.1)
[2021-09-09] MEDS: Budesonide/Formoterol 160/4.5 1 PUFF INH IH SCH ×2 (08:19→20:17)
[2021-09-09] MEDS: Cholecalciferol (D-3) 1,000 UNIT (25MCG) TABLET PO SCH (09:35)
[2021-09-09] MEDS: Aspirin Enteric Coated 81 MG Tablet PO SCH (09:36)
[2021-09-09] MEDS: DilTIAZem CD (24hr) 240 MG CAP.ER.24H PO SCH (09:36)
[2021-09-09] MEDS: Furosemide 40 MG/4 ML VIAL IVP SCH (10:59)
[2021-09-09] MEDS: *HR* Heparin 5,000 UNIT/ML VIAL IVP PRN (11:00)
[2021-09-09] MEDS: Apixaban 2.5 MG TABLET PO SCH (16:52)
[2021-09-09] MEDS: Simethicone 80 MG TAB.CHEW PO PRN (20:11)
[2021-09-09] MEDS ORDERED: Saline Nasal Spray 44 ML BOTTLE NS PRN (22:09)
[2021-09-10] MEDS: Albumin 25% 25gram/100mL 25 GM/100 ML IV.SOLN IVPB SCH ×3 (00:12→15:39)
[2021-09-10 00:45] LABS: Basophils % 0.2 %; Eosinophils % 0.3 %; Hematocrit 26.4 % (35.3-44.9); Hemoglobin 8.5 g/dL (11.5-15.4); Immature Granulocytes % 0.5 % (0-4); Lymphocytes # 0.5 K/mcL (0.6-4.6); Lymphocytes % 3.1 %; Mean Corpuscular HGB Conc 32.2 g/dL (31.6-35.5); Mean Corpuscular Hemoglobin 26.9 pg (28.0-33.3); Mean Corpuscular Volume 83.5 fL (83.0-100.0); Mean Platelet Volume 9.7 fL (9.4-12.4); Monocytes # 0.5 K/mcL (0.0-1.3); Monocytes % 3.1 %; Neutrophils # 13.7 K/mcL (1.6-8.9); Platelet Count 241 K/mcL (140-400); Red Blood Count 3.16 M/mcL (3.82-4.97); Red Cell Distribution Width 16.3 % (11.5-14.5); Segmented Neutrophils % 92.8 %; White Blood Count 14.7 K/mcL (4.3-11.1)
[2021-09-10 01:01] LABS: Calcium 8.8 mg/dL (8.6-10.3); Potassium 3.9 mEq/L (3.5-5.1)
[2021-09-10] MEDS: Apixaban 2.5 MG TABLET PO SCH ×2 (06:20→18:16)
[2021-09-10] MEDS: Budesonide/Formoterol 160/4.5 1 PUFF INH IH SCH ×2 (07:26→20:32)
[2021-09-10] MEDS: Insulin LISPRO 300 UNITS/3 ML VIAL SUBQ SCH ×3 (09:37→17:21)
[2021-09-10] MEDS: Aspirin Enteric Coated 81 MG Tablet PO SCH (09:37)
[2021-09-10] MEDS: Furosemide 40 MG/4 ML VIAL IVP SCH (09:37)
[2021-09-10] MEDS: DilTIAZem CD (24hr) 240 MG CAP.ER.24H PO SCH (09:37)
[2021-09-10] MEDS: Cholecalciferol (D-3) 1,000 UNIT (25MCG) TABLET PO SCH (09:38)
[2021-09-10 12:54] LABS: Bilirubin,Urine Negative (Negative); Blood,Urine Negative (Negative); Clarity,Urine Clear (Clear); Color,Urine Light-Yellow (Yellow); Glucose,Urine (UA) Normal (Normal); Ketones,Urine Negative (Negative); Leukocyte Esterase,Urine Negative (Negative); Nitrite,Urine Negative (Negative); Protein,Urine >=300 mg/dL (Neg-Trace); RBC,Urine 0-3 per hpf (0-3); Sodium, Urine 37.2 mEq/L; Specific Gravity,Urine 1.015 (1.010-1.025); Squamous Epithelial Cell,Urine Few per hpf (None-Few); Urobilinogen,Urine Normal (Normal); WBC,Urine 0-3 per hpf (0-3)
[2021-09-11] MEDS: Apixaban 2.5 MG TABLET PO SCH ×2 (05:20→17:32)
[2021-09-11 05:47] LABS: Basophils % 0.2 %; Eosinophils % 0.4 %; Hematocrit 25.8 % (35.3-44.9); Hemoglobin 8.5 g/dL (11.5-15.4); Immature Granulocytes % 0.4 % (0-4); Lymphocytes # 0.5 K/mcL (0.6-4.6); Lymphocytes % 5.2 %; Mean Corpuscular HGB Conc 32.9 g/dL (31.6-35.5); Mean Corpuscular Hemoglobin 27.2 pg (28.0-33.3); Mean Corpuscular Volume 82.4 fL (83.0-100.0); Mean Platelet Volume 9.6 fL (9.4-12.4); Monocytes # 0.4 K/mcL (0.0-1.3); Monocytes % 3.8 %; Nucleated Red Blood Cells 0.2 /100 WBC (0); Platelet Count 248 K/mcL (140-400); Red Blood Count 3.13 M/mcL (3.82-4.97); Red Cell Distribution Width 16.7 % (11.5-14.5)
[2021-09-11 06:02] LABS: Calcium 9.5 mg/dL (8.6-10.3)
[2021-09-11] MEDS: Budesonide/Formoterol 160/4.5 1 PUFF INH IH SCH ×2 (07:53→19:48)
[2021-09-11] MEDS: Furosemide 40 MG/4 ML VIAL IVP SCH (08:28)
[2021-09-11] MEDS: Aspirin Enteric Coated 81 MG Tablet PO SCH (08:28)
[2021-09-11] MEDS: Cholecalciferol (D-3) 1,000 UNIT (25MCG) TABLET PO SCH (08:28)
[2021-09-11] MEDS: DilTIAZem CD (24hr) 240 MG CAP.ER.24H PO SCH (08:28)
[2021-09-11] MEDS: Insulin LISPRO 300 UNITS/3 ML VIAL SUBQ SCH ×3 (08:33→17:21)
[2021-09-12] MEDS: Apixaban 2.5 MG TABLET PO SCH ×2 (05:22→17:32)
[2021-09-12] MEDS: Budesonide/Formoterol 160/4.5 1 PUFF INH IH SCH ×2 (07:36→20:51)
[2021-09-12] MEDS: Heparin 25,000UNIT/250ML 1/2NS 25,000 UNIT/250 ML IV.SOLN IVC SCH (07:42)
[2021-09-12] MEDS: Insulin LISPRO 300 UNITS/3 ML VIAL SUBQ SCH ×3 (07:49→17:33)
[2021-09-12] MEDS: Cholecalciferol (D-3) 1,000 UNIT (25MCG) TABLET PO SCH (07:58)
[2021-09-12] MEDS: Furosemide 40 MG/4 ML VIAL IVP SCH (07:58)
[2021-09-12] MEDS: DilTIAZem CD (24hr) 240 MG CAP.ER.24H PO SCH (07:59)
[2021-09-12] MEDS: Aspirin Enteric Coated 81 MG Tablet PO SCH (07:59)
[2021-09-12] MEDS ORDERED: Ondansetron 4 MG/2 ML VIAL IVP PRN (08:12)
[2021-09-12 08:43] LABS: Calcium 9.8 mg/dL (8.6-10.3); Potassium 4.1 mEq/L (3.5-5.1)
[2021-09-13] MEDS: Apixaban 2.5 MG TABLET PO SCH ×2 (05:49→18:24)
[2021-09-13 06:14] LABS: Basophils % 0.1 %; Eosinophils # 0.2 K/mcL (0.0-0.6); Eosinophils % 2.6 %; Hematocrit 26.8 % (35.3-44.9); Hemoglobin 8.6 g/dL (11.5-15.4); Immature Granulocytes % 0.5 % (0-4); Lymphocytes # 0.5 K/mcL (0.6-4.6); Lymphocytes % 6.4 %; Mean Corpuscular HGB Conc 32.1 g/dL (31.6-35.5); Mean Corpuscular Hemoglobin 26.7 pg (28.0-33.3); Mean Corpuscular Volume 83.2 fL (83.0-100.0); Mean Platelet Volume 9.4 fL (9.4-12.4); Monocytes # 0.7 K/mcL (0.0-1.3); Monocytes % 8.4 %; Neutrophils # 6.4 K/mcL (1.6-8.9); Platelet Count 277 K/mcL (140-400); Red Blood Count 3.22 M/mcL (3.82-4.97); Red Cell Distribution Width 17.1 % (11.5-14.5); White Blood Count 7.8 K/mcL (4.3-11.1)
[2021-09-13 06:54] LABS: Calcium 9.5 mg/dL (8.6-10.3); Potassium 4.3 mEq/L (3.5-5.1)
[2021-09-13 07:02] LABS: Kappa Qnt Free Light Chains 37.83 mg/L (3.30-19.40); Lambda Qnt Free Light Chains 19.66 mg/L (5.71-26.30)
[2021-09-13] MEDS: Insulin LISPRO 300 UNITS/3 ML VIAL SUBQ SCH ×3 (07:47→17:02)
[2021-09-13] MEDS: Budesonide/Formoterol 160/4.5 1 PUFF INH IH SCH ×2 (07:56→22:03)
[2021-09-13] MEDS ORDERED: DilTIAZem CD (24hr) 120 MG CAP.ER.24H PO ONE (08:28)
[2021-09-13] MEDS: Cholecalciferol (D-3) 1,000 UNIT (25MCG) TABLET PO SCH (09:06)
[2021-09-13] MEDS: Aspirin Enteric Coated 81 MG Tablet PO SCH (09:06)
[2021-09-13] MEDS: Furosemide 40 MG/4 ML VIAL IVP SCH (09:06)
[2021-09-13 21:43] LABS: Alpha 2 Globulin (PEP) 1.13 g/dL (0.48-1.05); Beta Globulin (PEP) 0.64 g/dL (0.48-1.10)
[2021-09-14] MEDS: Apixaban 2.5 MG TABLET PO SCH (05:37)
[2021-09-14 06:00] LABS: Basophils % 0.2 %; Eosinophils # 0.2 K/mcL (0.0-0.6); Eosinophils % 2.6 %; Hematocrit 29.6 % (35.3-44.9); Hemoglobin 9.6 g/dL (11.5-15.4); Immature Granulocytes % 0.4 % (0-4); Lymphocytes # 0.8 K/mcL (0.6-4.6); Lymphocytes % 8.8 %; Mean Corpuscular HGB Conc 32.4 g/dL (31.6-35.5); Mean Corpuscular Hemoglobin 26.9 pg (28.0-33.3); Mean Corpuscular Volume 82.9 fL (83.0-100.0); Mean Platelet Volume 9.1 fL (9.4-12.4); Monocytes # 0.7 K/mcL (0.0-1.3); Monocytes % 7.7 %; Neutrophils # 7.2 K/mcL (1.6-8.9); Platelet Count 320 K/mcL (140-400); Red Blood Count 3.57 M/mcL (3.82-4.97); Segmented Neutrophils % 80.3 %
[2021-09-14 06:20] LABS: Calcium 9.8 mg/dL (8.6-10.3); Potassium 4.4 mEq/L (3.5-5.1)
[2021-09-14 07:39] VITALS: BP 168/101
[2021-09-14] MEDS: Insulin LISPRO 300 UNITS/3 ML VIAL SUBQ SCH ×2 (07:59→12:29)
[2021-09-14] MEDS ORDERED: DilTIAZem CD (24hr) 300 MG CAP.ER.24H PO SCH (09:00)
[2021-09-14] MEDS: Furosemide 40 MG/4 ML VIAL IVP SCH (09:31)
[2021-09-14] MEDS: Aspirin Enteric Coated 81 MG Tablet PO SCH (09:31)
[2021-09-14] MEDS: Cholecalciferol (D-3) 1,000 UNIT (25MCG) TABLET PO SCH (09:31)
[2021-09-14 09:37] LABS: IFE Reflexed IFE Done; Immunoglobulin G 244 mg/dL (768-1632); Immunoglobulin M 20 mg/dL (35-263)
[2021-09-14 09:38] LABS: Immunoglobulin A 53 mg/dL (68-408)
[2021-09-14] MEDS: Budesonide/Formoterol 160/4.5 1 PUFF INH IH SCH (09:44)
[2021-09-14 11:55] VITALS: PULSE 105; TEMP 97.7; O2SAT 96
[2021-09-14 15:03] LABS: Total Volume 24 Hour,Urine 2.48 Liters (0.60-1.60)
[2021-09-14 15:53] LABS: Sodium, Urine 56.2 mEq/L
== END 2021-09-14 15:45 | disposition home health service (06) | DRG 291 ==
LOC: 2ANU 09:44 → EMEROOARM 09:44 → 2ANU 14:20 → 2NENU 09-08 00:30
PROVIDERS: ADMIT Student in an Organized Health Care Education/Training Program; ATTEND Student in an Organized Health Care Education/Training Program

== ENCOUNTER 2021-09-22 09:32 | Observation (INO) ==
[2021-09-22 12:10] LABS: Basophils % 0.5 %; Eosinophils % 0.1 %; Hematocrit 29.8 % (35.3-44.9); Hemoglobin 9.3 g/dL (11.5-15.4); Immature Granulocytes % 0.2 % (0-4); Lymphocytes # 0.7 K/mcL (0.6-4.6); Lymphocytes % 8.7 %; Mean Corpuscular HGB Conc 31.2 g/dL (31.6-35.5); Mean Corpuscular Hemoglobin 26.3 pg (28.0-33.3); Mean Corpuscular Volume 84.2 fL (83.0-100.0); Mean Platelet Volume 9.5 fL (9.4-12.4); Monocytes # 0.5 K/mcL (0.0-1.3); Monocytes % 5.6 %; Neutrophils # 7.2 K/mcL (1.6-8.9); Platelet Count 279 K/mcL (140-400); Red Blood Count 3.54 M/mcL (3.82-4.97); Segmented Neutrophils % 84.9 %; White Blood Count 8.5 K/mcL (4.3-11.1)
[2021-09-22 12:18] LABS: INR 1.5; Prothrombin Time 17.1 Seconds (9.4-12.1)
[2021-09-22 12:21] LABS: Activated Partial Thrombo Time 38.1 Seconds (26.0-36.0)
[2021-09-22 12:33] LABS: BUN/Creatinine Ratio 21 (6-26); Blood Urea Nitrogen 59 mg/dL (8-23); Calcium 9.6 mg/dL (8.6-10.3); Carbon Dioxide 22 mEq/L (23-29); Chloride 105 mEq/L (98-107); Glucose 55 mg/dL (70-105); Osmolality,Calculated 302 (280-300); Potassium 4.6 mEq/L (3.5-5.1); Sodium 139 mEq/L (136-145); Troponin I < 0.03 ng/mL (< 0.04); eGFR For African Americans 20 (> 60); eGFR For Non-African Americans 16 (> 60)
[2021-09-22 12:54] LABS: Influenza A PCR Negative (Negative); Influenza B PCR Negative (Negative); Resp. Syncytial Virus PCR Negative (Negative); SARS-CoV-2 by PCR (In House) Negative (Negative)
[2021-09-22] MEDS ORDERED: Furosemide 40 MG/4 ML VIAL IVP ONE (13:26)
[2021-09-22] MEDS ORDERED: Naloxone 0.4 MG/ML INJ IVP PRN (14:45)
[2021-09-22] MEDS ORDERED: Ondansetron 4 MG/2 ML VIAL IVP PRN (14:45)
[2021-09-22] MEDS ORDERED: Acetaminophen 325 MG TABLET PO PRN (14:45)
[2021-09-22] MEDS ORDERED: Ondansetron ODT 4 MG TAB.RAPDIS SL PRN (14:48)
[2021-09-22] MEDS ORDERED: *HR* Dextrose 50 % in Water (Syg) 50 ML SYRINGE IVP PRN (15:09)
[2021-09-22] MEDS ORDERED: D5% in Water 1,000 ML IVC PRN (15:09)
[2021-09-22] MEDS ORDERED: Dextrose Gel 15 GM/37.5 ML TUBE PO PRN ×2 (15:09)
[2021-09-22] MEDS: Apixaban 2.5 MG TABLET PO SCH (17:32)
[2021-09-22] MEDS: Furosemide 40 MG/4 ML VIAL IVP SCH (17:32)
[2021-09-22] MEDS: Insulin LISPRO 300 UNITS/3 ML VIAL SUBQ SCH (17:32)
[2021-09-22] MEDS: Metoprolol 100 MG TABLET PO SCH (19:47)
[2021-09-22] MEDS ORDERED: *HR* HYDROcodone/Acet 5/325 mg TABLET PO ONE (19:54)
[2021-09-22] MEDS: Budesonide/Formoterol 160/4.5 1 PUFF INH IH SCH (20:17)
[2021-09-22] MEDS: Insulin DETEMIR 100 UNIT/ML X5UNITS SUBQ SCH (21:49)
[2021-09-22 22:40] LABS: Bilirubin,Urine Negative (Negative); Blood,Urine Large (Negative); Clarity,Urine Clear (Clear); Color,Urine Light-Yellow (Yellow); Glucose,Urine (UA) Normal (Normal); Ketones,Urine Negative (Negative); Leukocyte Esterase,Urine Negative (Negative); Mucus,Urine Few per lpf (None-Few); Nitrite,Urine Negative (Negative); Protein,Urine 100 mg/dL (Neg-Trace); RBC,Urine 30-50 per hpf (0-3); Specific Gravity,Urine 1.011 (1.010-1.025); Squamous Epithelial Cell,Urine Few per hpf (None-Few); Urobilinogen,Urine Normal (Normal)
[2021-09-23 03:36] LABS: Hematocrit 27.8 % (35.3-44.9); Hemoglobin 8.6 g/dL (11.5-15.4); Mean Corpuscular HGB Conc 30.9 g/dL (31.6-35.5); Mean Corpuscular Hemoglobin 26.5 pg (28.0-33.3); Mean Corpuscular Volume 85.5 fL (83.0-100.0); Mean Platelet Volume 9.3 fL (9.4-12.4); Platelet Count 242 K/mcL (140-400); Red Blood Count 3.25 M/mcL (3.82-4.97); Red Cell Distribution Width 17.1 % (11.5-14.5); White Blood Count 7.3 K/mcL (4.3-11.1)
[2021-09-23 03:54] LABS: Calcium 9.3 mg/dL (8.6-10.3); Magnesium 2.6 mg/dL (1.6-2.6); Potassium 4.3 mEq/L (3.5-5.1)
[2021-09-23] MEDS: Apixaban 2.5 MG TABLET PO SCH ×2 (05:57→17:34)
[2021-09-23] MEDS: Insulin LISPRO 300 UNITS/3 ML VIAL SUBQ SCH ×3 (07:00→16:17)
[2021-09-23] MEDS ORDERED: amLODIPine 5 MG TABLET PO SCH (09:00)
[2021-09-23] MEDS ORDERED: DilTIAZem CD (24hr) 300 MG CAP.ER.24H PO SCH (09:00)
[2021-09-23] MEDS ORDERED: NON-FORMULARY MEDICATION 1 EACH EACH (Vit C/Vit E/Lutein/Min/Omega-3 [Ocuvite Softgel] 1 E PO SCH (09:00)
[2021-09-23] MEDS ORDERED: FLAXSEED OIL 1000 MG PO SCH (09:00)
[2021-09-23] MEDS: Budesonide/Formoterol 160/4.5 1 PUFF INH IH SCH ×2 (10:00→20:47)
[2021-09-23] MEDS: Furosemide 40 MG/4 ML VIAL IVP SCH ×2 (11:27→17:34)
[2021-09-23] MEDS: polyethylene glycoL 3350 17 GM POWD.PACK PO SCH (11:27)
[2021-09-23] MEDS: Insulin DETEMIR 100 UNIT/ML X5UNITS SUBQ SCH ×2 (11:28→20:32)
[2021-09-23] MEDS: Cholecalciferol (D-3) 1,000 UNIT (25MCG) TABLET PO SCH (11:29)
[2021-09-23] MEDS: Metoprolol 100 MG TABLET PO SCH ×2 (11:29→20:12)
[2021-09-23] MEDS: Multivit/Ca/Min/Fe/FA 1 TAB TABLET PO SCH (11:29)
[2021-09-23] MEDS: Aspirin Enteric Coated 81 MG Tablet PO SCH (11:29)
[2021-09-24 01:04] LABS: Basophils # 0.1 K/mcL (0.0-0.2); Basophils % 0.6 %; Eosinophils # 0.1 K/mcL (0.0-0.6); Eosinophils % 1.7 %; Hemoglobin 8.7 g/dL (11.5-15.4); Immature Granulocytes % 0.6 % (0-4); Lymphocytes # 0.6 K/mcL (0.6-4.6); Lymphocytes % 6.8 %; Mean Corpuscular HGB Conc 31.1 g/dL (31.6-35.5); Mean Corpuscular Hemoglobin 26.8 pg (28.0-33.3); Mean Corpuscular Volume 86.2 fL (83.0-100.0); Mean Platelet Volume 9.5 fL (9.4-12.4); Monocytes # 0.6 K/mcL (0.0-1.3); Monocytes % 6.8 %; Platelet Count 253 K/mcL (140-400); Red Blood Count 3.25 M/mcL (3.82-4.97); Red Cell Distribution Width 17.2 % (11.5-14.5); Segmented Neutrophils % 83.5 %; White Blood Count 8.4 K/mcL (4.3-11.1)
[2021-09-24 01:24] LABS: Calcium 9.1 mg/dL (8.6-10.3)
[2021-09-24] MEDS: Apixaban 2.5 MG TABLET PO SCH ×2 (05:25→17:44)
[2021-09-24] MEDS: Insulin LISPRO 300 UNITS/3 ML VIAL SUBQ SCH ×3 (07:05→15:59)
[2021-09-24] MEDS: Budesonide/Formoterol 160/4.5 1 PUFF INH IH SCH ×2 (07:25→20:11)
[2021-09-24] MEDS ORDERED: Regadenoson 0.4 MG/5 ML SYRINGE IVP ONE (07:25)
[2021-09-24] MEDS: Insulin DETEMIR 100 UNIT/ML X5UNITS SUBQ SCH ×2 (09:47→20:41)
[2021-09-24] MEDS: Metoprolol 100 MG TABLET PO SCH ×2 (10:42→20:41)
[2021-09-24] MEDS: Cholecalciferol (D-3) 1,000 UNIT (25MCG) TABLET PO SCH (10:42)
[2021-09-24] MEDS: Aspirin Enteric Coated 81 MG Tablet PO SCH (10:42)
[2021-09-24] MEDS: DilTIAZem CD (24hr) 180 MG CAP.ER.24H PO SCH (10:42)
[2021-09-24] MEDS: Multivit/Ca/Min/Fe/FA 1 TAB TABLET PO SCH (10:43)
[2021-09-24] MEDS: polyethylene glycoL 3350 17 GM POWD.PACK PO SCH (10:43)
[2021-09-24] MEDS: Furosemide 20 MG/2 ML VIAL IVP SCH ×2 (10:43→17:44)
[2021-09-25 04:35] LABS: Basophils % 0.7 %; Eosinophils # 0.1 K/mcL (0.0-0.6); Eosinophils % 2.5 %; Hematocrit 28.1 % (35.3-44.9); Hemoglobin 8.9 g/dL (11.5-15.4); Immature Granulocytes % 0.2 % (0-4); Lymphocytes # 0.6 K/mcL (0.6-4.6); Lymphocytes % 9.7 %; Mean Corpuscular HGB Conc 31.7 g/dL (31.6-35.5); Mean Corpuscular Hemoglobin 26.8 pg (28.0-33.3); Mean Corpuscular Volume 84.6 fL (83.0-100.0); Mean Platelet Volume 9.4 fL (9.4-12.4); Monocytes # 0.4 K/mcL (0.0-1.3); Monocytes % 7.8 %; Neutrophils # 4.5 K/mcL (1.6-8.9); Platelet Count 269 K/mcL (140-400); Red Blood Count 3.32 M/mcL (3.82-4.97); Red Cell Distribution Width 16.9 % (11.5-14.5); Segmented Neutrophils % 79.1 %; White Blood Count 5.7 K/mcL (4.3-11.1)
[2021-09-25 04:55] LABS: Calcium 9.1 mg/dL (8.6-10.3); Potassium 4.7 mEq/L (3.5-5.1)
[2021-09-25] MEDS: Apixaban 2.5 MG TABLET PO SCH ×2 (05:22→17:07)
[2021-09-25] MEDS: Insulin LISPRO 300 UNITS/3 ML VIAL SUBQ SCH ×3 (07:05→17:07)
[2021-09-25] MEDS: Budesonide/Formoterol 160/4.5 1 PUFF INH IH SCH ×2 (07:10→20:06)
[2021-09-25] MEDS: Multivit/Ca/Min/Fe/FA 1 TAB TABLET PO SCH (07:53)
[2021-09-25] MEDS: DilTIAZem CD (24hr) 180 MG CAP.ER.24H PO SCH (07:53)
[2021-09-25] MEDS: Cholecalciferol (D-3) 1,000 UNIT (25MCG) TABLET PO SCH (07:53)
[2021-09-25] MEDS: Metoprolol 100 MG TABLET PO SCH ×2 (07:53→21:42)
[2021-09-25] MEDS: Aspirin Enteric Coated 81 MG Tablet PO SCH (07:53)
[2021-09-25] MEDS: polyethylene glycoL 3350 17 GM POWD.PACK PO SCH (07:54)
[2021-09-25] MEDS: Insulin DETEMIR 100 UNIT/ML X5UNITS SUBQ SCH ×2 (07:54→21:42)
[2021-09-26] MEDS: Apixaban 2.5 MG TABLET PO SCH (05:57)
[2021-09-26 07:09] LABS: Basophils % 0.5 %; Eosinophils # 0.1 K/mcL (0.0-0.6); Eosinophils % 1.7 %; Hematocrit 28.1 % (35.3-44.9); Immature Granulocytes % 0.3 % (0-4); Lymphocytes # 0.5 K/mcL (0.6-4.6); Lymphocytes % 9.2 %; Mean Corpuscular Hemoglobin 27.2 pg (28.0-33.3); Mean Corpuscular Volume 84.9 fL (83.0-100.0); Mean Platelet Volume 9.3 fL (9.4-12.4); Monocytes # 0.4 K/mcL (0.0-1.3); Monocytes % 7.4 %; Neutrophils # 4.7 K/mcL (1.6-8.9); Platelet Count 241 K/mcL (140-400); Red Blood Count 3.31 M/mcL (3.82-4.97); Segmented Neutrophils % 80.9 %; White Blood Count 5.9 K/mcL (4.3-11.1)
[2021-09-26 07:25] LABS: Calcium 8.8 mg/dL (8.6-10.3); Potassium 4.8 mEq/L (3.5-5.1)
[2021-09-26] MEDS: Budesonide/Formoterol 160/4.5 1 PUFF INH IH SCH (07:35)
[2021-09-26] MEDS: Multivit/Ca/Min/Fe/FA 1 TAB TABLET PO SCH (09:01)
[2021-09-26] MEDS: Insulin LISPRO 300 UNITS/3 ML VIAL SUBQ SCH ×2 (09:01→11:25)
[2021-09-26] MEDS: Aspirin Enteric Coated 81 MG Tablet PO SCH (09:01)
[2021-09-26] MEDS: Cholecalciferol (D-3) 1,000 UNIT (25MCG) TABLET PO SCH (09:01)
[2021-09-26] MEDS: Metoprolol 100 MG TABLET PO SCH (09:02)
[2021-09-26] MEDS: Insulin DETEMIR 100 UNIT/ML X5UNITS SUBQ SCH (09:02)
[2021-09-26] MEDS: DilTIAZem CD (24hr) 180 MG CAP.ER.24H PO SCH (09:02)
[2021-09-26] MEDS: polyethylene glycoL 3350 17 GM POWD.PACK PO SCH (09:03)
[2021-09-26 11:35] VITALS: BP 162/91; PULSE 94; TEMP 97.9; O2SAT 97
== END 2021-09-26 13:27 | disposition home health service (06) ==
LOC: EMEROOARM 09:32 → 2ANU 09:32 → SUATTDRO 14:48 → 2ANU 15:13
PROVIDERS: ADMIT Internal Medicine; ATTEND Family Medicine